=== PATIENT | male | born 1985 | race Caucasian/White ===

== ENCOUNTER 2022-10-16 07:36 | Outpatient (REF) | payer OTHER, SELFPAY ==
--- NOTE | ~2022-10-16 | XR_ITS ---
EXAMINATION: XR SHOULDER, LEFT CLINICAL INFORMATION: Pain in left shoulder COMPARISON: None available. TECHNIQUE: AP neutral and scapular Y views of the left shoulder. FINDINGS: The bones are intact.. Glenohumeral and acromioclavicular alignment is anatomic with normal acromioclavicular joint space. Question narrowing of the glenohumeral joint with small osteophyte extending off the humeral head. No abnormal soft tissue calcifications. XR/XR shoulder LT min 2V IMPRESSION: Question of mild osteoarthritis of the glenohumeral joint.
== END 2022-10-16 07:37 | disposition home or self-care (01) ==
LOC: HO.HOSX 07:36
PROVIDERS: Visit Provider Orthopaedic Surgery
DX: M25.512 Pain in left shoulder (principal)
CPT/HCPCS: 73030; 99202

== ENCOUNTER 2022-10-16 13:00 | Outpatient (AMB) | payer OTHER, SELFPAY ==
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
[2022-10-16 13:09] VITALS: BMI 27.3
== END 2022-10-16 13:23 | disposition home or self-care (01) ==
PROVIDERS: PCP Family Medicine; Visit Provider Orthopaedic Surgery
DX: M25.512 Pain in left shoulder (principal)
CPT/HCPCS: 99202

== ENCOUNTER 2022-12-13 13:21 | Outpatient (REF) | payer OTHER, SELFPAY | END 2022-12-13 13:22 | disposition home or self-care (01) | LOC: HO.XRAY 13:21 | PROVIDERS: Visit Provider Orthopaedic Surgery | DX: M25.512 Pain in left shoulder (principal) | CPT/HCPCS: 23350; 73040; 73222 ==

== ENCOUNTER → 2022-12-13 13:23 | Outpatient (BNV) | payer OTHER, SELFPAY | PROVIDERS: Visit Provider Radiology Diagnostic Radiology | DX: M25.512 Pain in left shoulder (principal) | CPT/HCPCS: 73040 ==

== ENCOUNTER 2023-01-02 13:06 | Outpatient (AMB) | payer OTHER, SELFPAY ==
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
== END 2023-01-02 14:10 | disposition home or self-care (01) ==
PROVIDERS: Visit Provider Orthopaedic Surgery
DX: S43.439A Superior glenoid labrum lesion of unspecified shoulder, initial encounter (principal)
CPT/HCPCS: 99214

== ENCOUNTER → 2023-01-02 13:06 | Outpatient (BNVA) | payer OTHER, SELFPAY | PROVIDERS: Visit Provider Orthopaedic Surgery | DX: S43.432A Superior glenoid labrum lesion of left shoulder, initial encounter (principal); V49.9XXA Car occupant (driver) (passenger) injured in unspecified traffic accident, initial encounter; Y93.9 Activity, unspecified; Y92.9 Unspecified place or not applicable; Y99.9 Unspecified external cause status | CPT/HCPCS: 99212 ==

== ENCOUNTER 2024-12-08 14:08 | Emergency (ER) | payer OTHER, SELFPAY ==
[2024-12-08 14:10] VITALS: BP 146/99; PULSE 110; RESP 16; O2SAT 98; BMI 21.5
--- NOTE | 2024-12-08 14:12 | ED_ITS ---
HPI - General Adult General Chief complaint: Overdose Stated complaint: overdose, 2x narcan Time Seen by Provider: 12/08/24 14:12 History of Present Illness ED Provider: Kayy IVY narrative: The patient is a 39-year-old male with a history of IV drug use. Today he admits to having injected himself with heroin to get high. He was with his girlfriend of the time. Apparently he became unconscious in his girlfriend became nervous and administered nasal naloxone. She also called 911. He was brought to the hospital. On arrival here the patient says that he was feeling very unwell because he received the naloxone. He denies suicidality. He says that other than feeling symptoms of acute opioid withdrawal he does not feel ill otherwise. He had not been feeling ill before he shot up with heroin earlier. Related Data Home Medications ?Medication ?Instructions ?Recorded ?Confirmed No Known Home Meds 06/27/20 10/16/22 Allergies Allergy/AdvReac Type Severity Reaction Status Date / Time No Known Allergies (No Known Allergy Verified 12/08/24 14:12 Allergies*) Review of Systems 2 Review of Systems: Yes all other systems are reviewed and are negative [facility] Past Medical History Medical History History of methadone use Surgical History (Updated 01/20/23 @ 10:35 by Swati Danielson RN) Surgical history unknown Social History Social History (Updated 10/16/22 @ 13:10 by Dashawn Ferreira) Alcohol intake: never Patient Tobacco Use Status: Never used Tobacco Advance Directives: No Advance Directives Information Provided: No Do you have a plan to hurt others: No Plan Current occupational status: unemployed Current occupation: right hand dominant Physical Exam ED Vital Signs: Vital Signs - 24 hr 12/08/24 14:10 12/08/24 16:16 12/08/24 16:59 Temperature Pulse Rate 110 H 78 77 Respiratory Rate 16 19 19 Blood Pressure 146/99 H 100/58 L 91/51 L Pulse Oximetry 98 95 Oxygen Delivery Method Room Air Room Air Room Air 12/08/24 18:14 12/08/24 21:48 12/08/24 22:00 Temperature 98.4 F 98 F Pulse Rate 73 74 74 Respiratory Rate 16 16 16 Blood Pressure 90/50 L 104/59 L 104/59 L Pulse Oximetry 96 99 99 Oxygen Delivery Method Room Air Room Air Room Air BMI result Body Mass Index 21.5 Const Other: The patient is an athletic looking 39-year-old who was awake and alert and seemed very restless. HENMT Other: The face is symmetrical. ?Mucous membranes moist. Eyes Other: Pupils are round equal, conjunctivae are clear, extraocular movements intact Neck Neck: Yes normal visual inspection, Yes full ROM, Yes no lymphadenopathy and Yes no JVD Resp Effort & Inspection: normal respiratory effort Auscultation: clear to auscultation bilaterally Cardio Rate: regular rate Rhythm: regular rhythm Heart sounds: S1 normal heart sound present and S2 normal heart sound present GI Other: Abdomen is flat and soft nontender Skin Other: The patient has some track edwards on the skin of the arms. However no erythema or other signs of infection. Neuro Other: The patient was awake and alert. He seemed preoccupied with a sense of discomfort but was otherwise appropriately oriented and with a clear mental status. Cranial nerves 2-12 are intact. He moves all extremities with normal strength and coordination. Sensation grossly intact throughout. Extrem Other: There is no calf swelling or tenderness. No asymmetry. No peripheral edema. Medications Administered Discontinued Medications Generic Name Dose Route Start Last Admin Trade Name Freq PRN Reason Stop Dose Admin Midazolam HCl 10 mg 12/08/24 14:15 12/08/24 14:21 Midazolam Hcl 5 Mg/Ml Vial IM 12/08/24 14:16 10 mg ONCE ONE Administration Naloxone HCl 8 mg 12/08/24 21:50 12/08/24 21:56 Naloxone Hcl Nasal Take Home 4 Mg Brooks NOSTRILALT 12/08/24 21:51 8 mg ONCE ONE Administration Olanzapine 10 mg 12/08/24 14:15 12/08/24 14:20 Olanzapine 10 Mg Vial IM 12/08/24 14:16 10 mg ONCE ONE Administration Medical Decision Making Medical Decision Making MDM Narrative: The patient is a 39-year-old male who was using heroin earlier today. He had injected himself in his left arm. Apparently he passed out and his girlfriend was worried that he seemed very unconscious and called 911 and administered naloxone. On arrival here the patient was feeling very restless and anxious and requesting something to make him feel better. He was willing to take the offered IM midazolam and olanzapine. The patient received these medications. He seemed to be much calmer. He fell asleep for a long time. He was observed for several hours. Ultimately he was awake and admitted to feeling better and will be discharged with his girlfriend. The patient says that he has a insurance with [employer] but he does not have a PCP. He says he has been seen at the [facility] in the past. He is advised to try to reconnect with the [facility] for primary care. He is also referred to [facility] in case he has any desire to try to stop using opioids. Lab Data 12/08/24 16:04 12/08/24 16:04 Labs: Lab Results 12/08/24 Range/Units 16:04 WBC 8.7 (4.8-10.8) X10*3/uL RBC 4.93 (4.60-5.80) X10*6/uL Hgb 12.7 L (14.0-18.0) g/dl Hct 38.5 L (42.0-52.0) % MCV 78.1 L (80.0-98.0) fL MCH 25.8 L (27.0-33.0) pg MCHC 33.0 (31.0-36.0) g/dl RDW 14.2 (11.0-16.0) % Plt Count 260 (160-400) X10*3/uL MPV 8.9 L (9.4-12.4) fL Immature Gran % (Auto) 0.5 H (0.0-0.4) % Neut % (Auto) 68.6 (45-73) % Lymph % (Auto) 22.7 (20-40) % Wharton % (Auto) 6.7 (2-11) % Eos % (Auto) 1.2 (0-4) % Baso % (Auto) 0.3 (0-2) % Lymph # (Auto) 2.0 (1.2-4.9) X10*3/uL Wharton # (Auto) 0.6 (0.1-1.2) X10*3/uL Eos # (Auto) 0.1 (0.0-0.4) X10*3/uL Baso # (Auto) 0.0 (0.0-0.2) X10*3/uL Abs Immat Gran (auto) 0.04 H (0.00-0.03) X10*3/uL Absolute Neuts (auto) 6.0 (2.0-8.3) x10*3/uL Absolute Nucleated RBC 0.000 (0.0-0.012) X10*3/uL Nucleated RBC % (auto) 0.0 (0.0-0.2) /100WBC Sodium 142 (135-145) mmol/L Potassium 3.7 (3.3-5.1) mmol/L Chloride 109 H (96-108) mmol/L Carbon Dioxide 27 (22-29) mmol/L Anion Gap 10 L (12-20) BUN 12 (9-16) mg/dL Creatinine 0.77 (0.5-1.4) mg/dL Estim Creat Clear Calc 123.9 Estimated GFR > 60 Random Glucose 124 H (60-115) mg/dL Calcium 9.0 (8.4-10.2) mg/dL Total Bilirubin 0.2 (0.0-1.0) mg/dL Direct Bilirubin < 0.2 (0.0-0.5) mg/dL AST 46 H (5-37) U/L ALT 38 (0-40) U/L Alkaline Phosphatase 103 (39-117) U/L Total Protein 7.9 (6.5-8.0) g/dL Albumin 3.9 (3.5-5.0) g/dL Ethyl Alcohol < 10 mg/dL Discharge Plan Discharge Clinical Impression: Opioid overdose Patient Disposition: Home, Self-Care Additional Instructions: Please work on getting a primary care doctor. If you has been seen before at the [facility] that might be a good place to try to start. Also, if you want to speak to somebody about possibly stopping opioid use, please contact the [facility]. Please keep the naloxone (Narcan) with you in case of overdose. Opiate use disorder You were seen in our Emergency Department today for treatment of opiate use disorder. You may have been dosed with medication for opiate use disorder (MOUD) in the form of suboxone or methadone. You may experience feeling some withdrawal symptoms and this is normal. The? dose in the Emergency Department is a starting dose and meant to be titrated up once you follow up with a clinic. Please do not feel discouraged, it is a process. The nurse has reviewed with you where to follow up and what information to bring with you, to continue treatment. You also may have been given naloxone (narcan) to take home with you. This medication is used to potentially treat opiate overdose. If you decide you want to stop or cut down on how much you?re using, you can call or walk into our outpatient Addiction Treatment office: [facility] (M-F 9am-5p) [address] [place] [address], [address] [phone] You may have been provided with safer injection?items, please take time to take care of YOU and your health. Use new supplies whenever possible to lessen the chances of infections and other illnesses.? ?If you need more supplies, please go [facility],? [address] [place] [address] OR you can call or text to coordinate delivery of safer supplies. You were also provided a list of several treatment providers in the area.? If you experience any worsening symptoms you cannot control please return to the ED or call 911. Please follow up at your next appointment. Things to look out for are fevers, chest pain, shortness of breath, severe pain, dizziness, fainting or any other concerns. Prescriptions: No Action No Known Home Meds Referrals: [facility] [Provider Group] [facility] [Provider Group] Interventions: ED Discharge Assessment Last Done: 12/08/24 22:00 Print Language: Portuguese
[2024-12-08] MEDS: OLANZapine 10 MG VIAL IM (14:20)
[2024-12-08 16:09] LABS: MANUAL DIFF FLAG NO
[2024-12-08 16:10] LABS: Hematocrit 38.5 % (42.0-52.0); Hemoglobin 12.7 g/dl (14.0-18.0); Imm Gran Abs Auto 0.04 X10*3/uL (0.00-0.03); Imm Gran Pct Auto 0.5 % (0.0-0.4); Lymphocytes Absolute Auto 2.0 X10*3/uL (1.2-4.9); Mean Corpuscular HGB Conc 33.0 g/dl (31.0-36.0); Mean Corpuscular Hemoglobin 25.8 pg (27.0-33.0); Mean Corpuscular Volume 78.1 fL (80.0-98.0); NRBC Abs Auto 0.000 X10*3/uL (0.0-0.012); NRBC Pct Auto 0.0 /100WBC (0.0-0.2); Platelet Count 260 X10*3/uL (160-400); Red Blood Count 4.93 X10*6/uL (4.60-5.80); White Blood Count 8.7 X10*3/uL (4.8-10.8)
--- NOTE | 2024-12-08 16:15 | PC.NURSE ---
Pt responsive to pain, but otherwise not responding. He does move spontaneously.
[2024-12-08 16:16] VITALS: BP 100/58; PULSE 78; RESP 19
[2024-12-08 16:24] LABS: Alanine Aminotransferase 38 U/L (0-40); Albumin Level 3.9 g/dL (3.5-5.0); Alkaline Phosphatase 103 U/L (39-117); Anion Gap 10 (12-20); Aspartate Amino Transferase 46 U/L (5-37); Blood Urea Nitrogen 12 mg/dL (9-16); Calcium 9.0 mg/dL (8.4-10.2); Carbon Dioxide 27 mmol/L (22-29); Chloride 109 mmol/L (96-108); Creatinine Clr Calc Pharmacy 123.9; Estimated Glomerular Filt Rate > 60; Potassium 3.7 mmol/L (3.3-5.1); Sodium 142 mmol/L (135-145); Total Protein 7.9 g/dL (6.5-8.0)
[2024-12-08 16:59] VITALS: BP 91/51; PULSE 77; RESP 19; O2SAT 95
[2024-12-08 18:14] VITALS: BP 90/50; PULSE 73; RESP 16; TEMP 36.9; O2SAT 96
[2024-12-08 21:48] VITALS: BP 104/59; PULSE 74; RESP 16; O2SAT 99
--- NOTE | 2024-12-08 21:49 | PC.NURSE ---
pt is awake, vitals obtained, girlfriend said she is on the way to pick him up. pt requested drink, given. MD at bedside for discharge eval.
[2024-12-08] MEDS: Naloxone HCl Nasal TAKE HOME 4 MG SPRAY 8 MG NOSTRILALT (21:56)
[2024-12-08 22:00] VITALS: BP 104/59; PULSE 74; RESP 16; TEMP 36.6; O2SAT 99
== END 2024-12-08 22:10 | disposition home or self-care (01) ==
PROVIDERS: Emergency Provider Emergency Medicine
DX: T40.2X1A Poisoning by other opioids, accidental (unintentional), initial encounter (principal); Y92.9 Unspecified place or not applicable
CPT/HCPCS: 36415; 80048; 80076; 80307; 85025; 96372; 99283; 99284; J2250; J2359